=== PATIENT | male | born 1930 | race Caucasian/White ===

== ENCOUNTER 2017-01-22 10:37 | Emergency (ER) | payer OTHER ==
[~2017-01-22] VITALS: Ht 167.6 cm; Wt 72.4 kg
[~2017-01-22 10:37] MED LIST: Z.0.NO CURRENT MEDS
[2017-01-22 10:42] VITALS: BP 159/80; PULSE 81; RESP 16; TEMP 98.9; O2SAT 95
--- NOTE | 2017-01-22 11:09 | PD ---
HPI . left leg pain for 10 days Chief Complaint: Musculoskeletal Complaint Time Seen by Provider: 11:08 Travel History International Travel<30 days: No Contact w/Intl Traveler<30days: No Traveled to known affect area: No History of Present Illness HPI 86-year-old male with no significant past medical history here with complaints of left leg pain for 10 days. Apparently patient was working on his roof and had his leg stretched out for too long. After that he developed some left leg pain. The pain is located on the distal portion of the knee and the anterior portion of the calf. He tells me that the pain is about a 6/10 without any radiation. He thinks he pulled a muscle and wanted to come in for further evaluation. He is accompanied by his fiance. He does have a primary care provider. He has no other complaints. He denies any chest pain, nausea, vomiting, diaphoresis, shortness of breath, or abdominal pain. PFSH Past Medical History Medical History: Denies Significant Hx Tetanus Vaccination: < 5 Years Influenza Vaccination: Yes Past Surgical History Surgical History: No Previous Surgery Social History Alcohol Use: No Tobacco Use: No Substance Use: No Allergies-Medications (Allergen,Severity, Reaction): Coded Allergies: No Known Allergies (Unverified , 01/22/17) Reported Meds & Prescriptions Reported Meds & Active Scripts Active Ibuprofen 800 Mg Tab 800 Mg PO TID Review of Systems General / Constitutional: No: Fever Eyes: No: Visual changes HENT: No: Headaches Cardiovascular: No: Chest Pain or Discomfort Respiratory: No: Shortness of Breath Gastrointestinal: No: Abdominal Pain Genitourinary: No: Dysuria Musculoskeletal: Positive: Pain (left leg/knee pain) Skin: No Rash Neurologic: No: Weakness Psychiatric: No: Depression Endocrine: No: Polydipsia Hematologic/Lymphatic: No: Easy Bruising Physical Exam Narrative GENERAL: AAO x 3, no acute distress, Well-nourished, well-developed patient. SKIN: Warm and dry. No visible rashes or bruising. HEAD: Normocephalic and atraumatic. EYES: No scleral icterus. No injection or drainage. ENT: No nasal drainage noted. Mucous membranes pink. Airway patent. NECK: Supple, trachea midline. No JVD. CARDIOVASCULAR: Regular rate and rhythm without murmurs, gallops, or rubs. RESPIRATORY: Breath sounds equal bilaterally. No accessory muscle use. No rhonchi or rales. GASTROINTESTINAL: Abdomen soft, non-tender, nondistended. EXTREMITIES: No cyanosis or edema. Negative Asif and Luis. Joint is stable without any laxity. No patellar deformity. No leg deformity. Calf is normal. Hip joint is normal. SLR is negative. No surrounding muscular tenderness. Pain seems to be more in the knee joint. BACK: Nontender without obvious deformity. No CVA tenderness. PSYCH: AAO x 3, normal affect. Data Data Last Documented VS Vital Signs Date Time Temp Pulse Resp B/P Pulse Ox O2 Delivery O2 Flow Rate FiO2 01/22/17 10:42 98.9 81 16 159/80 95 MDM Medical Decision Making Medical Screen Exam Complete: Yes Emergency Medical Condition: Yes Medical Record Reviewed: Yes Differential Diagnosis bursitis, knee sprain, less likely DVT Narrative Course 86-year-old male with no significant past medical history here with complaints of left leg pain for 10 days. Apparently patient was working on his roof and had his leg stretched out for too long. After that he developed some left leg pain. The pain is located on the distal portion of the knee and the anterior portion of the calf. He tells me that the pain is about a 6/10 without any radiation. He thinks he pulled a muscle and wanted to come in for further evaluation. He is accompanied by his fiance. He does have a primary care provider. He has no other complaints. He denies any chest pain, nausea, vomiting, diaphoresis, shortness of breath, or abdominal pain. Patient seen and examined. Exam is essentially unremarkable. Advised him that he more than likely has a bursitis of the knee. Advised anti-inflammatories and rest. Discussed if his symptoms continue that he needs to follow-up with his primary care provider Patient verbalized understanding of instructions, questions were answered, and thanked me for their care. I advised them if their condition worsens, please return to the nearest emergency room for further care. Diagnosis Primary Impression: Bursitis of left knee Patient Instructions: General Instructions, Knee Bursitis (ED) Additional Instructions: Please return to emergency department if your symptoms return or worsen. Follow up with your primary care provider. Take medications as prescribed. Med/Other Pt SpecificInfo: Prescription(s) given Scripts Ibuprofen 800 Mg Pmr349 Mg PO TID #20 TAB Ref 0 Prov:Vanessa Arriaza MD 01/22/17 Disposition: 01 DISCHARGE HOME Condition: Stable Teetee Daniels Jan 22, 2017 11:09
[2017-01-22] MEDS ORDERED: IBUP800T23 PO ×2 (11:16→11:17)
== END 2017-01-22 11:31 | disposition home or self-care (01) ==
LOC: PHEFT 10:37
DX: M70.52 Other bursitis of knee, left knee (principal)
CPT/HCPCS: 99283

== ENCOUNTER 2017-10-25 10:18 | Observation (INO) | payer OTHER ==
[~2017-10-25] VITALS: Ht 167.6 cm; Wt 71.0 kg
[2017-10-25] VITALS (11 sets, daily range): BP systolic 112–169; BP diastolic 53–83; PULSE 59–80; RESP 14–18; TEMP 97–97.8; O2SAT 96–98
[~2017-10-25 10:18] MED LIST changes: +IBUP1TAB7 PO; -Z.0.NO CURRENT MEDS
[2017-10-25] MEDS ORDERED: ASPIRIN 81 MG CHEW TAB CHEW ONE (10:45)
--- NOTE | 2017-10-25 10:46 | PD ---
HPI Chief Complaint: Neuro Symptoms/ Deficits Time Seen by Provider: 10:33 Travel History International Travel<30 days: No Contact w/Intl Traveler<30days: No History of Present Illness HPI Patient is an 87-year-old male presents emergency department for evaluation of sudden onset inability to speak and dizziness approximately an hour ago while eating breakfast, symptoms since resolved. 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 He states now he feels fine. He states the same thing happened about a week ago which resolved spontaneously and never sought medical care for it. He called his regular physician today after he regained the ability to speak and they told him to come to the emergency department for evaluation. Otherwise healthy takes no prescription medications on a regular basis, has never had a stroke or heart attack before, no blood thinners. Denies any chest pain shortness of breath abdominal pain extremity weakness. Symptoms are moderate, resolved, context as above, she did sign symptoms as above.. PFSH Past Medical History Medical History: Denies Significant Hx Past Surgical History Surgical History: No Previous Surgery Social History Alcohol Use: No Tobacco Use: No Substance Use: No Allergies-Medications (Allergen,Severity, Reaction): Coded Allergies: No Known Allergies (Unverified Adverse Reaction, Unknown, 10/25/17) Reported Meds & Prescriptions Reported Meds & Active Scripts Active Review of Systems Except as stated in HPI: all other systems reviewed are Neg Physical Exam Narrative GENERAL: Well-developed well-nourished quite pleasant male in no obvious distress. SKIN: Focused skin assessment warm/dry. HEAD: Atraumatic. Normocephalic. EYES: Pupils equal and round. No scleral icterus. No injection or drainage. ENT: No nasal bleeding or discharge. Mucous membranes pink and moist. NECK: Trachea midline. No JVD. CARDIOVASCULAR: Regular rate and rhythm. No murmur appreciated. RESPIRATORY: No accessory muscle use. Clear to auscultation. Breath sounds equal bilaterally. GASTROINTESTINAL: Abdomen soft, non-tender, nondistended. Hepatic and splenic margins not palpable. MUSCULOSKELETAL: No obvious deformities. No clubbing. No cyanosis. No edema. NEUROLOGICAL: Awake and alert. There is minimal weakness of the upper and lower distributions of the right side cranial nerve VII. Patient is coming by his good friend he states he has a history of Summers's palsy and this is normal facial features. Otherwise cranial nerves are intact, 5 out of 5 strength in all 4 extremities, no pronator drift, DTRs normal, Babinskis are downgoing, PSYCHIATRIC: Appropriate mood and affect; insight and judgment normal. Data Data Last Documented VS Vital Signs Date Time Temp Pulse Resp B/P (MAP) Pulse Ox O2 Delivery O2 Flow Rate FiO2 10/25/17 11:41 77 18 150/72 (98) 97 Room Air 10/25/17 10:20 97.8 Orders Orders Cath For Specimen (10/25/17 10:33) Activity Bed Rest (10/25/17 10:33) Diet Npo (10/25/17 Lunch) Prothrombin Time / Inr (Pt) (10/25/17 10:33) Act Partial Throm Time (Ptt) (10/25/17 10:33) Complete Blood Count With Diff (10/25/17 10:33) Basic Metabolic Panel (Bmp) (10/25/17 10:33) Creatine Kinase (Cpk) (10/25/17 10:33) Troponin I (10/25/17 10:33) Ua Includes Microscopic (10/25/17 10:33) Ct Brain W/O Iv Contrast(Rout) (10/25/17 ) Cta Brain W Iv Contrast W 3d (10/25/17 10:33) Cta Neck W Iv Contrast W 3d (10/25/17 10:33) Electrocardiogram (10/25/17 ) Ecg Monitoring (10/25/17 10:33) Iv Access Insert/Monitor (10/25/17 10:33) NPO (10/25/17 10:33) Oximetry (10/25/17 10:33) Oxygen Administration (10/25/17 10:33) Resp Oxygen Ben C Titrat 1-4 L (10/25/17 10:33) Aspirin Chew (Aspirin Chew) (10/25/17 10:45) Iohexol 350 Inj (Omnipaque 350 Inj) (10/25/17 12:26) Admit Order (Ed Use Only) (10/25/17 ) Labs Laboratory Tests Test 10/25/17 10:25 10/25/17 11:20 White Blood Count 6.3 TH/MM3 Red Blood Count 4.09 MIL/MM3 Hemoglobin 13.6 GM/DL Hematocrit 41.2 % Mean Corpuscular Volume 100.6 FL Mean Corpuscular Hemoglobin 33.2 PG Mean Corpuscular Hemoglobin Concent 33.0 % Red Cell Distribution Width 13.5 % Platelet Count 148 TH/MM3 Mean Platelet Volume 7.4 FL Neutrophils (%) (Auto) 55.6 % Lymphocytes (%) (Auto) 31.3 % Monocytes (%) (Auto) 9.6 % Eosinophils (%) (Auto) 2.8 % Basophils (%) (Auto) 0.7 % Neutrophils # (Auto) 3.5 TH/MM3 Lymphocytes # (Auto) 2.0 TH/MM3 Monocytes # (Auto) 0.6 TH/MM3 Eosinophils # (Auto) 0.2 TH/MM3 Basophils # (Auto) 0.0 TH/MM3 CBC Comment DIFF FINAL Differential Comment Prothrombin Time 11.3 SEC Prothromb Time International Ratio 1.1 RATIO Activated Partial Thromboplast Time 26.4 SEC Blood Urea Nitrogen 22 MG/DL Creatinine 1.30 MG/DL Random Glucose 167 MG/DL Calcium Level 8.7 MG/DL Sodium Level 140 MEQ/L Potassium Level 4.0 MEQ/L Chloride Level 103 MEQ/L Carbon Dioxide Level 27.2 MEQ/L Anion Gap 10 MEQ/L Estimat Glomerular Filtration Rate 52 ML/MIN Total Creatine Kinase 133 U/L Troponin I LESS THAN 0.02 NG/ML Urine Collection Type CATH Urine Color YELLOW Urine Turbidity CLEAR Urine pH 6.5 Urine Specific [place] 1.022 Urine Protein TRACE mg/dL Urine Glucose (UA) NEG mg/dL Urine Ketones NEG mg/dL Urine Occult Blood NEG Urine Nitrite NEG Urine Bilirubin NEG Urine Leukocyte Esterase NEG Urine RBC 0-3 /hpf Urine WBC 0-2 /hpf Urine Collection Time 11:20 MDM Medical Decision Making Medical Screen Exam Complete: Yes Emergency Medical Condition: Yes Differential Diagnosis hypoglycemia, TIA, acute stroke, hemorrhagic stroke, Narrative Course Patient roomed in emergency department, his only deficit that I see is the right -sided facial weakness which according to his friend is his normal facial weakness. Patient states he does not feel weak or having any difficulty speaking above normal. Therefore is not indicated for stroke alert. Given his symptoms suggestive of TIA certainly hypoglycemia as a possibility as well. Discussed the differential with him and recommended observation status and he is agreeable. CT head negative, electrolytes negative, does have some mild elevation of glucose but is postprandial of pancakes and Maple syrup, patient was discussed with Dr. Man for observation and he is agreeable. Diagnosis Primary Impression: TIA (transient ischemic attack) Admitting Information Admitting Physician Requests: Observation Condition: Stable Dougie Oleary MD Oct 25, 2017 10:46
[2017-10-25 11:03] LABS: AUTOMATED NEUTROPHIL # 3.5 TH/MM3 (1.8-7.7); BASOPHIL % 0.7 % (0.0-2.0); EOSINOPHIL # 0.2 TH/MM3 (0-0.4); EOSINOPHIL % 2.8 % (0.0-4.0); HEMATOCRIT 41.2 % (39.0-51.0); HEMO FLAGS DIFF FINAL; LYMPH % 31.3 % (9.0-44.0); MEAN CELL VOLUME 100.6 FL (80.0-100.0); MEAN CORPUSCULAR HEMOGLOBIN 33.2 PG (27.0-34.0); MONO % 9.6 % (0.0-8.0); NEUT % 55.6 % (16.0-70.0); PLATELET COUNT 148 TH/MM3 (150-450); RED BLOOD COUNT 4.09 MIL/MM3 (4.50-5.90); RED CELL DISTRIBUTION WIDTH 13.5 % (11.6-17.2); WHITE BLOOD COUNT 6.3 TH/MM3 (4.0-11.0)
[2017-10-25 11:10] LABS: CHLORIDE 103 MEQ/L (98-107); SODIUM (NA) 140 MEQ/L (136-145)
[2017-10-25 11:14] LABS: ANION GAP 10 MEQ/L (5-15); APTT (PATIENT) 26.4 SEC (24.3-30.1); BICARBONATE 27.2 MEQ/L (21.0-32.0); BLOOD UREA NITROGEN 22 MG/DL (7-18); INTERNATIONAL NORMALIZED RATIO 1.1 RATIO; PROTHROMBIN TIME - PATIENT 11.3 SEC (9.8-11.6)
[2017-10-25 11:17] LABS: GLOMERULAR FILTRATION RATE 52 ML/MIN (>89)
[2017-10-25 11:20] LABS: CREATINE KINASE 133 U/L (39-308)
[2017-10-25 11:31] LABS: BLOOD, URINE NEG (NEG); GLUCOSE,URINE NEG (NEG); KETONE, URINE NEG (NEG); NITRITE,URINE NEG (NEG); PH, URINE 6.5 (5.0-8.5)
[2017-10-25 11:38] LABS: METHOD OF COLLECTION CATH; RBC, URINE 0-3 /hpf (0-3); URINE COLOR YELLOW (YELLW/STRAW); WBC, URINE 0-2 /hpf (0-5)
[2017-10-25] MEDS ORDERED: IOHEXOL 350 MG/ML 10 ML VIAL (for RAD DIAG) IVCONTRAST ONE (12:26)
--- NOTE | 2017-10-25 12:28 | RADRPT ---
EXAM DATE/TIME: 10/25/2017 12:08 [facility] COMPARISON: No previous studies available for comparison. INDICATIONS : Dysphasia and dizziness earlier today, dysphasia has resolved. Evaluate for TIA. RADIATION DOSE: 58.44 CTDIvol (mGy) MEDICAL HISTORY : Summers's palsy. chronic double vision. SURGICAL HISTORY : None. ENCOUNTER: Initial ACUITY: 1 day PAIN SCALE: 0/10 LOCATION: cranial TECHNIQUE: Multiple contiguous axial images were obtained of the head. Using automated exposure control and adj ustment of the mA and/or kV according to patient size, radiation dose was kept as low as reasonably a chievable to obtain optimal diagnostic quality images. DICOM format image data is available electro nically for review and comparison. FINDINGS: CEREBRUM: The ventricles are normal for age. No evidence of midline shift, mass lesion, hemorrhage or acute in farction. No extra-axial fluid collections are seen. POSTERIOR FOSSA: The cerebellum and brainstem are intact. The 4th ventricle is midline. The cerebellopontine angle i s unremarkable. EXTRACRANIAL: The visualized portion of the orbits is intact. SKULL: The calvaria is intact. No evidence of skull fracture. CONCLUSION: Normal examination. Arnaldo Ibry MD on October 25, 2017 at 12:25 Board Certified Radiologist. This report was verified electronically.
--- NOTE | 2017-10-25 13:41 | RADRPT ---
EXAM DATE/TIME: 10/25/2017 12:08 [facility] COMPARISON: No previous studies available for comparison. INDICATIONS : Dysphasia and dizziness earlier today, dysphasia has resolved. Evaluate for TIA. IV CONTRAST: 90 cc Omnipaque 350 (iohexol) IV ; Cumulative dose for multiple exams. RADIATION DOSE: 42.21 CTDIvol (mGy) ; Combined studies MEDICAL HISTORY : Summers's palsy. chronic double vision. SURGICAL HISTORY : None. ENCOUNTER: Initial ACUITY: 1 day PAIN SCALE: 0/10 LOCATION: cranial TECHNIQUE: Volumetric scanning was performed using a multi-row detector CT scanner. The data was post processed with a variety of visualization algorithms including full volume maximum intensity projection, multi -planar sliding thin slab reformation, curved planar reformation, and surface rendering techniques. Using automated exposure control and adjustment of the mA and/or kV according to patient size, radiat ion dose was kept as low as reasonably achievable to obtain optimal diagnostic quality images. DICO M format image data is available electronically for review and comparison. FINDINGS: Anterior circulation: Distal intracranial internal carotid arteries are patent with flow extending to the middle and anteri or cerebral arteries. There is no evidence for aneurysm, vessel truncation or stenosis, and no eviden ce for vascular malformation. Posterior circulation: Symmetric distal vertebral arteries with flow extending to basilar artery. There is no evidence for aneurysm, vessel truncation or stenosis, and no evidence for vascular malformation. CONCLUSION: 1. Unremarkable head CT examination. Specifically, no evidence for large vessel occlusion or aneurysm . Ricardo Davies MD on October 25, 2017 at 13:37 Board Certified Radiologist. This report was verified electronically.
--- NOTE | 2017-10-25 14:57 | RADRPT ---
EXAM DATE/TIME: 10/25/2017 12:08 [facility] COMPARISON: No previous studies available for comparison. INDICATIONS : Dysphasia and dizziness earlier today, dysphagia has resolved. Evaluate for TIA. IV CONTRAST: 90 cc Omnipaque 350 (iohexol) IV ; Cumulative dose for multiple exams. RADIATION DOSE: 42.21 CTDIvol (mGy) ; Combined studies MEDICAL HISTORY : Summers's palsy. chronic double vision. SURGICAL HISTORY : None. ENCOUNTER: Initial ACUITY: 1 day PAIN SCALE: 0/10 LOCATION: neck Elevated flow velocities and ICA/CCA ratios have been found to correlate with increased degrees of vessel stenosis, calculated as percentage of diameter relative to a normal segment of distal ICA/CCA. TECHNIQUE: Volumetric scanning was performed using a multirow detector CT scanner. The data was post processed with a variety of visualization algorithms including full-volume maximum intensity projection, multip lanar sliding thin-slab reformation, curved-planar reformation, and surface-rendering techniques. Us ing automated exposure control and adjustment of the mA and/or kV according to patient size, radiatio n dose was kept as low as reasonably achievable to obtain optimal diagnostic quality images. DICOM f ormat image data is available electronically for review and comparison. FINDINGS: No abnormality is identified within the lung apices. There is normal origin of vessels from the arch without evidence of proximal stenosis. Vertebral arteries are codominant. Examination of the right common carotid artery demonstrates the vessel to be widely patent. There is 0-10% stenosis at the origin of the right internal carotid artery with minimal calcific plaque presen t More distally the cervical internal carotid artery is intact. Examination of the left common carotid artery demonstrates the vessel to be widely patent. There is 0 -10% stenosis at the origin of the left internal carotid artery with minimal calcific plaque present. More distally the cervical internal carotid artery is intact. Percent stenosis is calculated using the diameter of the stenotic region over the diameter of the nor mal distal internal carotid artery. CONCLUSION: 1. No evidence of hemodynamically significant lesion. There is 0-10% stenosis bilaterally Kole Ness MD on October 25, 2017 at 14:53 Board Certified Radiologist. This report was verified electronically.
--- NOTE | 2017-10-25 16:31 | HHI.HP ---
[facility] Service [facility] Primary Care Physician Rogelio Jara MD Admission Diagnosis TIA Diagnoses: (1) TIA (transient ischemic attack) Diagnosis: Principal Chief Complaint: Slurred speech, expressive dysphasia Travel History International Travel<30 Days: No Contact w/Intl Traveler <30 Da: No Traveled to Known Affected Are: No History of Present Illness Written by Glenn Coffey, acting as scribe for Dr. Man on 10/25/17 at 16 :20. 87 year-old male with known history of vertigo, Summers's palsy, obstructive sleep apnea who presented to hospital because acute neurological symptoms. Patient states that a week ago he was in normal state of health until he had an episode that lasted for approximately 30 minutes that consisted of difficulty in reading. He knew the letter's but he could not put them together to formulate the word. His symptoms resolved and did not recur. Then this morning he was eating breakfast with her friend and got very thick tongue, heavy speech, slurred speech with expressive dysphasia. This lasted again for another 30 minutes. He notified his friend that he was going to go home and and rest, however his friend notified him to call his physician and go to the hospital. The patient presented to emergency department had workup done which has been unremarkable. Patient was recommended observation for TIA workup. Patient denies having any headaches, nausea, vomiting, or one-sided focal acute vision changes. Denies any changes in his gait or balance. Review of Systems Neurologic: COMPLAINS OF: Speech Problems Except as stated in HPI: all other systems reviewed are Neg Past Family Social History Past Medical History Vertigo Summers's palsy Obstructive sleep apnea Past Surgical History No previous surgeries Reported Medications No home medications Allergies: Coded Allergies: No Known Allergies (Unverified Adverse Reaction, Unknown, 10/25/17) Family History Family history was reviewed and unremarkable for any heart disease, lung disease , seizures, cancer, stroke. States that both his parents lived to old age with dementia Social History Patient denies any tobacco or illicit drugs. Does drink alcohol rarely Physical Exam Vital Signs Vital Signs Date Time Temp Pulse Resp B/P (MAP) Pulse Ox O2 Delivery O2 Flow Rate FiO2 10/25/17 14:37 10/25/17 14:18 80 18 155/77 (103) 98 Room Air 10/25/17 13:10 73 18 169/83 (111) 98 Room Air 10/25/17 11:41 77 18 150/72 (98) 97 Room Air 10/25/17 10:58 18 96 Room Air 10/25/17 10:58 96 Room Air 10/25/17 10:20 97.8 77 18 141/69 (93) 96 Physical Exam GENERAL: Well-developed, well-nourished, in no acute distress. alert and orientated HEENT: Head is normocephalic without any lesions or masses noted. Eyes: Pupils equal round reactive to light. Extraocular muscles are intact. Conjunctivae were clear. Oropharyngeal: Pharynx without any erythema edema. Tongue is midline without deviation. Buccal mucosa is moist without any masses or lesions CARDIAC: Regular rhythm, regular rate. S1/S2 are heard. No murmurs gallops or rubs. LUNGS: Clear to auscultation bilaterally. No wheeze, rhonchi or rales. No use of accessory muscles on inspiration or expiration. ABDOMEN: Soft, nontender. Nondistended. Bowel sounds heard in all 4 quadrants. No organomegaly or masses. Negative rebound, negative guarding EXTREMITIES: No edema, pulses are equal bilaterally. No cyanosis or clubbing MSK: Muscle strength 5/5 in upper and lower extremities bilaterally. NEUROLOGY: Diminished patellar reflexes bilaterally. Has a mild right-sided facial droop which the patient states is chronic, has no slurred speech. Has intact sensation to light touch on bilateral upper and lower extremities as well as face. Tongue is midline. Finger to nose to finger is intact bilaterally. Psychiatry: Mood and affect appear appropriate. Laboratory Laboratory Tests Test 10/25/17 10:25 10/25/17 11:20 White Blood Count 6.3 Red Blood Count 4.09 Hemoglobin 13.6 Hematocrit 41.2 Mean Corpuscular Volume 100.6 Mean Corpuscular Hemoglobin 33.2 Mean Corpuscular Hemoglobin Concent 33.0 Red Cell Distribution Width 13.5 Platelet Count 148 Mean Platelet Volume 7.4 Neutrophils (%) (Auto) 55.6 Lymphocytes (%) (Auto) 31.3 Monocytes (%) (Auto) 9.6 Eosinophils (%) (Auto) 2.8 Basophils (%) (Auto) 0.7 Neutrophils # (Auto) 3.5 Lymphocytes # (Auto) 2.0 Monocytes # (Auto) 0.6 Eosinophils # (Auto) 0.2 Basophils # (Auto) 0.0 CBC Comment DIFF FINAL Differential Comment Prothrombin Time 11.3 Prothromb Time International Ratio 1.1 Activated Partial Thromboplast Time 26.4 Blood Urea Nitrogen 22 Creatinine 1.30 Random Glucose 167 Calcium Level 8.7 Sodium Level 140 Potassium Level 4.0 Chloride Level 103 Carbon Dioxide Level 27.2 Anion Gap 10 Estimat Glomerular Filtration Rate 52 Total Creatine Kinase 133 Troponin I LESS THAN 0.02 Urine Collection Type CATH Urine Color YELLOW Urine Turbidity CLEAR Urine pH 6.5 Urine Specific [place] 1.022 Urine Protein TRACE Urine Glucose (UA) NEG Urine Ketones NEG Urine Occult Blood NEG Urine Nitrite NEG Urine Bilirubin NEG Urine Leukocyte Esterase NEG Urine RBC 0-3 Urine WBC 0-2 Urine Collection Time 11:20 Result Diagram: 10/25/17 1025 10/25/17 1025 Imaging Last Impressions Neck CTA 10/25/17 1033 Signed Impressions: Service Date/Time: Wednesday, October 25, 2017 12:08 - CONCLUSION: 1. No evidence of hemodynamically significant lesion. There is 0-10%% stenosis bilaterally Kole Ness MD Head CTA 10/25/17 1033 Signed Impressions: Service Date/Time: Wednesday, October 25, 2017 12:08 - CONCLUSION: 1. Unremarkable head CT examination. Specifically, no evidence for large vessel occlusion or aneurysm. Ricardo Davies MD Head CT 10/25/17 0000 Signed Impressions: Service Date/Time: Wednesday, October 25, 2017 12:08 - CONCLUSION: Normal examination. Arnaldo Irby MD Caprini VTE Risk Assessment Caprini VTE Risk Assessment: Mod/High Risk (score >= 2) Caprini Risk Assessment Model Point Value = 1 Point Value = 2 Point Value = 3 Point Value = 5 Age 41-60 Minor surgery BMI > 25 kg/m2 Swollen legs Varicose veins or History of unexplained or recurrent spontaneous Oral contraceptives or hormone replacement Sepsis (< 1 month) Serious lung disease, including pneumonia (< 1 month) Abnormal pulmonary function Acute myocardial infarction Congestive heart failure (< 1 month) History of inflammatory bowel disease Medical patient at bed rest Age 61-74 Arthroscopic surgery Major open surgery (> 45 min) Laparoscopic surgery (> 45 min) Malignancy Confined to bed (> 72 hours) Immobilizing plaster cast Central venous access Age >= 75 History of VTE Family history of VTE Factor V Leiden Prothrombin [id number] Lupus anticoagulant Anticardiolipin antibodies Elevated serum homocysteine Heparin-induced thrombocytopenia Other congenital or acquired thrombophilia Stroke (< 1 month) Elective arthroplasty Hip, pelvis, or leg fracture Acute spinal cord injury (< 1 month) Prophylaxis Regimen Total Risk Factor Score Risk Level Prophylaxis Regimen 0-1 Low Early ambulation 2 Moderate Order ONE of the following: *Sequential Compression Device (SCD) *Heparin 5000 units SQ BID 3-4 Higher Order ONE of the following medications: *Heparin 5000 units SQ TID *Enoxaparin/Lovenox 40 mg SQ daily (WT < 150 kg, CrCl > 30 mL/min) *Enoxaparin/Lovenox 30 mg SQ daily (WT < 150 kg, CrCl > 10-29 mL/min) *Enoxaparin/Lovenox 30 mg SQ BID (WT < 150 kg, CrCl > 30 mL/min) AND/OR *Sequential Compression Device (SCD) 5 or more Highest Order ONE of the following medications: *Heparin 5000 units SQ TID (Preferred with Epidurals) *Enoxaparin/Lovenox 40 mg SQ daily (WT < 150 kg, CrCl > 30 mL/min) *Enoxaparin/Lovenox 30 mg SQ daily (WT < 150 kg, CrCl > 10-29 mL/min) *Enoxaparin/Lovenox 30 mg SQ BID (WT < 150 kg, CrCl > 30 mL/min) AND *Sequential Compression Device (SCD) Assessment and Plan Assessment and Plan 87 year-old male who is in to the hospital for evaluation of slurred speech, expressive dysphasia that lasted for 30 minutes. Transient ischemic attack -Head CT, neck CTA, head CTA has been performed which are all unremarkable -We'll obtain MRI of the brain, echocardiogram -Obtain additional laboratory studies to include B12, folate, TSH, lipid panel -We'll get PT/OT/ST evaluations -Continue full dose aspirin -Start Lipitor 10 mg at bedtime DVT prevention -Sequential compression devices This note was transcribed by kristine Coffey. Rupesh Ratliffi, personally performed the history, physical exam, and medical decision making; and confirmed the accuracy of the information in the transcribed note. Orders entered by Mario Coffey were at my discretion. Authenticated by Rupesh Man on 10/26/17 at 6:54 PM. Problem Qualifiers (1) TIA (transient ischemic attack): Qualified Codes: G45.9 - Transient cerebral ischemic attack, unspecified Glenn Coffey Oct 25, 2017 16:31 Rupesh Man MD Oct 26, 2017 09:00
[2017-10-25 18:51] LABS: ALT (GPT) 21 U/L (12-78); AST (GOT) 15 U/L (15-37)
[2017-10-25] MEDS ORDERED: ATORVASTATIN 10 MG TAB PO SCH (21:00)
[2017-10-25 21:46] LABS: HEMOGLOBIN A1a 1.3 %; HEMOGLOBIN A1b 1.7 %; HEMOGLOBIN Ao 84.6 %; HEMOGLOBIN LA1C 2.4 %; HEMOGLOBIN P3 3.9 %
[2017-10-26] VITALS: BP 143/79; PULSE 79; RESP 19; TEMP 98; O2SAT 95
[2017-10-26 04:00] VITALS: BP 133/75; PULSE 82; RESP 17; TEMP 97.7; O2SAT 94
[2017-10-26 08:44] VITALS: BP 137/77; PULSE 65; RESP 15; TEMP 96.5; O2SAT 97
[2017-10-26] MEDS ORDERED: ASPIRIN EC 325 MG TABEC PO SCH (09:00)
[2017-10-26 09:34] LABS: HDL CHOLESTEROL 56.9 MG/DL (40.0-60.0)
--- NOTE | 2017-10-26 10:29 | EKG ---
Date Performed: 10/25/2017 Time Performed: 10:24:03 PTAGE: 87 years EKG: Sinus rhythm NORMAL ECG PREVIOUS TRACING : 05/15/2013 14.13 Compared to prior tracing no significant change DOCTOR: Elodia Vela Interpretating Date/Time 10/26/2017 10:28:08
--- NOTE | 2017-10-26 11:08 | HHI.PR ---
Subjective Remarks Patient seen and examined today for follow-up on probable TIA. Patient is resting comfortable. Denies any new complaints. Denies any recurrent dysphasia , slurred speech, dizziness. Objective Vital Signs Date Time Temp Pulse Resp B/P (MAP) Pulse Ox O2 Delivery O2 Flow Rate FiO2 10/26/17 08:44 96.5 65 15 137/77 (97) 97 10/26/17 04:00 97.7 82 17 133/75 (94) 94 10/26/17 00:00 98.0 79 19 143/79 (100) 95 10/25/17 20:30 70 10/25/17 20:15 96 Nasal Cannula 21 10/25/17 20:00 97.6 76 18 154/83 (106) 96 10/25/17 17:35 98 21 10/25/17 16:00 97.0 59 14 112/53 (72) 97 10/25/17 15:45 65 10/25/17 14:37 10/25/17 14:18 80 18 155/77 (103) 98 Room Air 10/25/17 13:10 73 18 169/83 (111) 98 Room Air 10/25/17 11:41 77 18 150/72 (98) 97 Room Air I/O 10/25/17 10/25/17 10/25/17 10/26/17 10/26/17 10/26/17 07:00 15:00 23:00 07:00 15:00 23:00 Intake Total 240 ml Balance 240 ml Intake Oral 240 ml # Voids 1 5 # Bowel Movements 0 Result Diagram: 10/25/17 1025 10/25/17 1025 Objective Remarks GENERAL: Well-developed, well-nourished, in no acute distress. alert and orientated HEENT: Head is normocephalic without any lesions or masses noted. Patient does have a chronic right facial droop. Eyes: Extraocular muscles are intact. Conjunctivae were clear. NECK: Supple without any masses. Trachea midline no deviation. No JVD, CARDIAC: Regular rhythm, regular rate. S1/S2 are heard. No murmurs gallops or rubs. LUNGS: Clear to auscultation bilaterally. No wheeze, rhonchi or rales. No use of accessory muscles on inspiration or expiration. ABDOMEN: Soft, nontender. Nondistended. Bowel sounds heard in all 4 quadrants. No organomegaly or masses. Negative rebound, negative guarding EXTREMITIES: No edema, pulses are equal bilaterally. No cyanosis or clubbing NEUROLOGY: Mood and affect appear appropriate. Moving all extremities, speech is clear A/P Assessment and Plan 87 year-old male who is in to the hospital for evaluation of slurred speech, expressive dysphasia that lasted for 30 minutes. Transient ischemic attack -Head CT, neck CTA, head CTA has been performed which are all unremarkable -MRI of the brain does not indicate any acute abnormality or infarction -Echocardiogram indicates ejection fraction 55-60% with normal systolic function -Lipid panel does indicate LDL 82, Lipitor 10 mg has been started -PT/OT/ST evaluations -Continue full dose aspirin DVT prevention -Sequential compression devices Discharge Planning Discharge planning home today once workup complete and unremarkable Activity: Ad leeann. Diet: Regular diet Medications per medication reconciliation Follow-up with primary medical doctor in one week Glenn Coffey Oct 26, 2017 11:08
[2017-10-26 12:17] VITALS: BP 150/65; PULSE 68; RESP 16; TEMP 96.5; O2SAT 98
--- NOTE | 2017-10-26 12:17 | RADRPT ---
EXAM DATE/TIME: 10/26/2017 10:58 [facility] COMPARISON: CT BRAIN W/O CONTRAST, October 25, 2017, 12:08. INDICATIONS : CVA. Blurry vision and inability to speak. MEDICAL HISTORY : Bullard palsy. SURGICAL HISTORY : None. ENCOUNTER: Initial ACUITY: 1 day PAIN SCORE: 0/10 LOCATION: Head. TECHNIQUE: Multiplanar, multisequence MRI of the brain was performed without contrast. FINDINGS: CEREBRUM: The ventricles are normal for age. Cerebral atrophy. No evidence of midline shift, mass lesion, hemor rhage or acute infarction. No extraaxial fluid collections are seen. The pituitary gland and supras ellar cistern are normal in configuration. WHITE MATTER: Scattered foci of bright T2 signal abnormalities are seen in the white matter. POSTERIOR FOSSA: The cerebellum and brainstem are intact. The 4th ventricle is midline. The cerebellopontine angle is unremarkable. The cerebellar tonsils are normal in position. DIFFUSION IMAGING: No focal areas of restricted diffusion are seen. No evidence of acute infarction. EXTRACRANIAL: The visualized portions of the orbits and paranasal sinuses are unremarkable. CONCLUSION: 1. 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 2. No acute infarction. Gm Reese MD on October 26, 2017 at 12:13 Board Certified Radiologist. This report was verified electronically.
[2017-10-26] MEDS ORDERED: LIPI10TA PO (12:28)
[2017-10-26] MEDS ORDERED: ASPI325T33 PO (12:28)
--- NOTE | 2017-10-26 12:28 | HHI.DCPOC ---
Discharge Care Plan Diagnosis: (1) TIA (transient ischemic attack) Goals to Promote Your Health * To prevent worsening of your condition and complications * To maintain your health at the optimal level Directions to Meet Your Goals Take your medications as prescribed Follow your dietary instruction Follow activity as directed Keep your appointments as scheduled Take your immunizations and boosters as scheduled If your symptoms worsen call your PCP, if no PCP go to Urgent Care Center or Emergency Room Smoking is Dangerous to Your Health. Avoid second hand smoke Call the 24-hour hour crisis hotline for domestic abuse at Glenn Coffey Oct 26, 2017 12:28
--- NOTE | 2017-10-26 12:31 | ECHRPT ---
Indication: cva/tia CONCLUSIONS The left ventricular systolic function is normal with an estimated ejection fraction in the range of 55-60%. No regional wall motion abnormalities are present. Mild concentric left ventricular hypertrophy. Normal left ventricular size. Trace mitral valve regurgitation. Mild aortic valve regurgitation. There is mild tricuspid valve regurgitation. The estimated pulmonary arterial pressure is 33 mmHg. BP: / HR: Rhythm: MEASUREMENTS (Male / Female) Normal Values Technical Quality:Good 2D ECHO LV Diastolic Diameter PLAX 4.2 cm 4.2 - 5.9 / 3.9 - 5.3 cm LV Systolic Diameter PLAX 3.2 cm IVS Diastolic Thickness 1.3 cm 0.6 - 1.0 / 0.6 - 0.9 cm LVPW Diastolic Thickness 1.3 cm 0.6 - 1.0 / 0.6 - 0.9 cm LV Relative Wall Thickness 0.6 RV Internal Dim ED PLAX 2.9 cm M-MODE Aortic Root Diameter MM 3.7 cm LA Systolic Diameter MM 3.2 cm LA Ao Ratio MM 0.9 AV Cusp Separation MM 1.6 cm DOPPLER AI Peak Velocity 212.0 cm/s AI Peak Gradient 18.0 mmHg AI Pressure Half Time 843.0 ms Mitral E Point Velocity 69.1 cm/s Mitral A Point Velocity 88.4 cm/s Mitral E to A Ratio 0.8 LV E' Lateral Velocity 7.0 cm/s Mitral E to LV E' Lateral Ratio 9.8 LV E' Septal Velocity 7.0 cm/s Mitral E to LV E' Septal Ratio 9.8 TR Peak Velocity 240.0 cm/s TR Peak Gradient 23.0 mmHg Right Atrial Pressure 10.0 mmHg Pulmonary Artery Systolic Pressu 33.0 mmHg Right Ventricular Systolic Press 33.0 mmHg FINDINGS LEFT VENTRICLE The left ventricular systolic function is normal with an estimated ejection fraction in the range of 55-60%. No regional wall motion abnormalities are present. Mild concentric left ventricular hypertrophy. Normal left ventricular size. RIGHT VENTRICLE Normal right ventricular size and systolic function. LEFT ATRIUM The left atrial size is normal. RIGHT ATRIUM The right atrial size is normal. ATRIAL SEPTUM Normal atrial septal thickness without atrial level shunting by limited color doppler interrogation. AORTA The aortic root and proximal ascending aorta are normal in size on limited imaging. MITRAL VALVE Structurally normal mitral valve. Trace mitral valve regurgitation. AORTIC VALVE Trileaflet aortic valve. Mild aortic valve regurgitation. TRICUSPID VALVE Structurally normal tricuspid valve. There is mild tricuspid valve regurgitation. The estimated pulmonary arterial pressure is 33 mmHg. PULMONARY VALVE No pulmonary valve regurgitation or stenosis. VESSELS The inferior vena cava is normal in size. PERICARDIUM No pericardial effusion. Jossue Mcmanus MD (Electronically Signed) Final Date:26 October 2017 12:31
== END 2017-10-26 15:05 | disposition home or self-care (01) ==
LOC: PHED 10:18 → PHEDA 12:56 → PH3B 14:33
PROVIDERS: ADMIT Hospitalist; ATTEND Hospitalist
DX: R29.818 Other symptoms and signs involving the nervous system (principal); R42 Dizziness and giddiness; R47.02 Dysphasia; H53.2 Diplopia; G47.33 Obstructive sleep apnea (adult) (pediatric); R73.9 Hyperglycemia, unspecified; D69.1 Qualitative platelet defects; D64.9 Anemia, unspecified; R79.1 Abnormal coagulation profile; R79.89 Other specified abnormal findings of blood chemistry; R55 Syncope and collapse; Z51.81 Encounter for therapeutic drug level monitoring
CPT/HCPCS: 70450; 70496; 70498; 70551; 80048; 80061; 81001; 82550; 82607; 82746; 83036; 84443; 84450; 84460; 84484; 85025; 85610; 85652; 85730; 92610; 93005; 93306; 96125; 97162; 97165; 99285; G0378; G8987; G8988; G8989; G8996; G8997; G8998; Q9967